=== PATIENT | female | born 1995 | race American Indian/Alaskan Native ===

== ENCOUNTER 2018-05-07 16:18 | Emergency (ER) | payer MEDICAID ==
[2018-05-07 16:31] VITALS: BP 112/71
[2018-05-07 16:50] LABS: HCG Qualitative,Urine Positive (Negative)
--- NOTE | 2018-05-07 16:52 | Emergency Department Report ---
ED Abdominal Pain HPI - General Chief Complaint: Abdominal Pain Stated Complaint: CRAMPING/7WKS PREG Time Seen by Provider: 05/07/18 16:51 Source: patient Mode of arrival: Ambulatory Limitations: No Limitations - History of Present Illness Initial Comments: Patient is a 23-year-old -[place] female who presents to the ER today with pelvic pressure. She is 7 weeks WITH LMP ON 1120. A1. PT IS ANXIOUS SHE IS HAVING A MISCARRIAGE. SHE HAS OB [facility]BGYN NO VAGINAL BLEEDING -: Gradual Associated Symptoms: denies other symptoms - Related Data Allergies Allergy/AdvReac Type Severity Reaction Status Date / Time No Known Allergies Allergy Unverified 05/07/18 16:21 ED Review of Systems ROS: Stated complaint: CRAMPING/7WKS PREG Other details as noted in HPI Comment: All other systems reviewed and negative Constitutional: denies: chills Eyes: denies: eye pain ENT: denies: throat pain Respiratory: denies: cough Cardiovascular: denies: dyspnea on exertion Endocrine: denies: excessive sweating Gastrointestinal: denies: nausea Genitourinary: as per HPI, other (PELVIC PRESSURE). denies: urgency, dysuria, frequency, hematuria, discharge, abnormal menses, dyspareunia Musculoskeletal: denies: back pain Skin: denies: rash Neurological: denies: headache Psychiatric: denies: anxiety Hematological/Lymphatic: denies: easy bleeding ED Past Medical Hx - Past Medical History Previous Medical History?: No - Surgical History Past Surgical History?: No - Social History Smoking Status: Never Smoker Substance Use Type: None ED Physical Exam - General Limitations: No Limitations General appearance: alert - Head Head exam: Present: atraumatic - Eye Eye exam: Present: normal appearance - ENT ENT exam: Present: normal exam, mucous membranes moist - Neck Neck exam: Present: normal inspection - Respiratory Respiratory exam: Present: normal lung sounds bilaterally - Cardiovascular Cardiovascular Exam: Present: regular rate - GI/Abdominal GI/Abdominal exam: Present: soft, normal bowel sounds - Rectal Rectal exam: Present: deferred - Extremities Exam Extremities exam: Present: normal inspection, full ROM - Back Exam Back exam: Present: normal inspection, full ROM - Neurological Exam Neurological exam: Present: alert, oriented X3 - Psychiatric Psychiatric exam: Present: normal affect, normal mood - Skin Skin exam: Present: warm, dry, intact ED Course Vital Signs 05/07/18 16:21 Temperature 97.7 F Pulse Rate 78 Respiratory 16 Rate Blood Pressure 112/71 O2 Sat by Pulse 99 Oximetry ED Medical Decision Making - Medical Decision Making GIVEN NO VAG BLEED NO ULTRASOUND WILL BE DONE UA IS CLEAR URINE PREG POS QUANT [id number] - Differential Diagnosis CONCERN FOR MISCARRIAGE; RO UTI; CONFIRM PREG Critical care attestation.: If time is entered above; I have spent that time in minutes in the direct care of this critically ill patient, excluding procedure time. ED Disposition Clinical Impression: Disposition: DC-01 TO HOME OR SELFCARE Is pt being admited?: No Does the pt Need Aspirin: No Condition: Stable Additional Instructions: NO UTI NOTED PELVIC REST DAILY MVI - HYDRATE WELL FOLLOW UP WITH OBGYN THIS WEEK-- [facility] LET HER KNOW YOU WERE HERE AND THEY CAN OBTAIN YOUR LABS FROM TODAY HORMONE [id number] Referrals: PRIMARY CARE, [Primary Care Provider] - 3-5 Days Time of Disposition: 17:11
[2018-05-07 16:54] LABS: Bilirubin,Urine NEG (Negative); Blood,Urine NEG (Negative); Color,Urine Yellow (Yellow); Mucus,Urine FEW /HPF; Protein,Urine <15 mg/dL mg/dL (Negative); RBC,Urine < 1.0 /HPF (0.0-6.0); Urobilinogen,Urine < 2.0 mg/dL (<2.0); WBC,Urine < 1.0 /HPF (0.0-6.0)
== END 2018-05-07 17:57 | disposition home or self-care (01) ==
LOC: ED 16:18
DX: O26.891 Other specified pregnancy related conditions, first trimester (principal); Z3A.01 Less than 8 weeks gestation of pregnancy
CPT/HCPCS: 36415; 81001; 81025; 84702; 99283

== ENCOUNTER 2018-12-03 03:43 | Inpatient (IN) | payer MEDICAID, OTHER ==
[2018-12-03] MEDS ORDERED: LACTATED RINGERS 500 ML IV ONE (03:53)
[2018-12-03] MEDS ORDERED: LACTATED RINGERS 1,000 ML IV ONE (04:58)
[2018-12-03] MEDS ORDERED: STADOL IV PRN (06:04)
[2018-12-03] MEDS ORDERED: XYLOCAINE 2% INFILTRATI ONE ×2 (06:04→18:59)
[2018-12-03] MEDS ORDERED: BRETHINE IVP PRN (06:04)
[2018-12-03] MEDS ORDERED: BRETHINE SUB-Q PRN (06:04)
[2018-12-03] MEDS ORDERED: AMPICILLIN/NS 2 GM/100 ML 2 GM/100 ML BAG IV ONE (06:04)
[2018-12-03] MEDS ORDERED: MINERAL OIL PO PRN (06:04)
[2018-12-03] MEDS ORDERED: SUBLIMAZE IV PRN (06:04)
--- NOTE | 2018-12-03 06:04 | History and Physical Report ---
History of Present Illness Date of examination: 12/03/18 Date of admission: 12/03/18 Chief complaint: Contractions History of present illness: 23yo G 2 P 1 0 0 1 @ 36 weeks 5 days here with c/o contractions every 3 mins. She reports +FMs but denies VB or LOF. She is a [facility] patient. records are unavailable. Per pt, her course has been unremarkable. She reports one visit with [facility] d/t abnormality seen on ultrasound but was cleared and advised to f/u as needed. GBS is unknown. Past History Past Medical History: no pertinent history Past Surgical History: no surgical history Family/Genetic History: diabetes (maternal grandmother and aunt), hypertension (mom) Social history: lives with family, full code. denies: smoking, alcohol abuse, prescription drug abuse, IV drug use - Obstetrical History Expected Date of Delivery: 12/26/18 Actual Gestation: 36 Week(s) 5 Day(s) : 2 Para: 1 Hx # Term Pregnancies: 1 Number of Pregnancies: 0 Spontaneous Abortions: 0 Induced : 0 Number of Living Children: 1 #1 Infant Gender: Female year: [birth year]) Birthweight: 2.863 kg (6 lbs 5 oz) Method of Delivery: Vaginal Gestational age at delivery: 37 Complications: none Medications and Allergies Allergies Allergy/AdvReac Type Severity Reaction Status Date / Time No Known Allergies Allergy Unverified 05/07/18 16:21 Review of Systems All systems: negative - Vital Signs Vital signs: Vital Signs Temp Resp 99.5 F 18 12/03/18 03:51 12/03/18 03:51 Temp Pulse Resp BP Pulse Ox 99.5 F 83 18 98/55 12/03/18 03:51 12/03/18 04:07 12/03/18 03:51 12/03/18 04:07 - Physical Exam Genitourinary (Female): Positive: normal external genitalia, normal perenium Vulva: both: normal Vagina: Positive: normal moisture Uterus: Positive: normal size - Obstetrical FHR: auscultation normal, category 1 FHR comments: baseline 140, moderate variability, 15x15 accels, no decels Cervical Dilatation: 5 Cervical Effacement Percentage: 80 station: 0 Uterine Contraction Pattern: Regular Results Result Diagrams: 12/03/18 06:12 All other labs normal. Assessment and Plan - Patient Problems (1) 36 weeks gestation of Current Visit: Yes Status: Acute (2) labor in third trimester Current Visit: Yes Status: Acute Qualifiers: Fetus number: single or unspecified fetus Plan to address problem: Admit to L&D with routine labor orders Expectant management Start Ampicillin for GBS prophylaxis Anticipate vaginal delivery
[2018-12-03 06:28] LABS: Hematocrit 36.4 % (30.3-42.9); Mean Corpuscular HGB Conc 33 % (30-34); Mean Corpuscular Volume 89 fl (79-97); Platelet Count 200 K/mm3 (140-440); Red Blood Count 4.12 M/mm3 (3.65-5.03); Red Cell Distribution Width 13.2 % (13.2-15.2)
[2018-12-03] MEDS ORDERED: PITOCin/NS 20 UNIT/1000ML DRIP 20 UNITS/1,000 ML BAG IV SCH (07:00)
[2018-12-03] MEDS: LACTATED RINGERS 1,000 ML IV SCH ×2 (08:00→14:43)
--- NOTE | 2018-12-03 10:25 | Progress Note ---
Assessment and Plan - Patient Problems (1) labor in third trimester Current Visit: Yes Status: Acute Qualifiers: Fetus number: single or unspecified fetus Plan to address problem: Continue routine labor orders Continue GBS prophylaxis as ordered Expectant management of labor until second dose of Abt has been received Anticipate Subjective - Subjective Date of service: 12/03/18 Principal diagnosis: 36.5 weeks gestation; Active labor Interval history: See admission H & P Patient reports: movement normal, contractions, no new complaints (Pt pleasant, offering no concerns/complaints), no loss of fluid, no vaginal bleeding Objective - Vital Signs Vital Signs: Vital Signs - 12hr 12/03/18 12/03/18 12/03/18 03:51 04:07 06:42 Temperature 99.5 F Pulse Rate 83 80 Respiratory 18 Rate Blood Pressure 98/55 Blood Pressure [Left] O2 Sat by Pulse 99 Oximetry 12/03/18 12/03/18 12/03/18 06:43 06:47 06:52 Temperature Pulse Rate 80 78 82 Respiratory Rate Blood Pressure 114/66 Blood Pressure [Left] O2 Sat by Pulse 99 98 Oximetry 12/03/18 12/03/18 12/03/18 06:57 07:02 07:13 Temperature Pulse Rate 86 89 84 Respiratory Rate Blood Pressure Blood Pressure [Left] O2 Sat by Pulse 100 100 100 Oximetry 12/03/18 12/03/18 12/03/18 07:15 07:17 07:22 Temperature Pulse Rate 83 81 82 Respiratory Rate Blood Pressure 115/56 Blood Pressure [Left] O2 Sat by Pulse 99 99 Oximetry 12/03/18 12/03/18 12/03/18 07:28 07:32 07:37 Temperature Pulse Rate 79 85 81 Respiratory Rate Blood Pressure 114/60 Blood Pressure [Left] O2 Sat by Pulse 98 99 100 Oximetry 12/03/18 12/03/18 12/03/18 07:42 07:43 07:47 Temperature Pulse Rate 78 76 84 Respiratory Rate Blood Pressure 117/66 Blood Pressure [Left] O2 Sat by Pulse 100 99 Oximetry 12/03/18 12/03/18 12/03/18 07:53 07:57 07:58 Temperature Pulse Rate 77 78 75 Respiratory Rate Blood Pressure 111/61 Blood Pressure [Left] O2 Sat by Pulse 100 100 Oximetry 12/03/18 12/03/18 12/03/18 08:03 08:07 08:08 Temperature Pulse Rate 79 91 H 89 Respiratory Rate Blood Pressure Blood Pressure [Left] O2 Sat by Pulse 99 98 91 Oximetry 12/03/18 12/03/18 12/03/18 08:13 08:17 08:22 Temperature 97.6 F Pulse Rate 82 89 86 Respiratory 14 Rate Blood Pressure Blood Pressure 111/61 [Left] O2 Sat by Pulse 99 98 100 Oximetry 12/03/18 12/03/18 12/03/18 08:27 08:32 08:37 Temperature Pulse Rate 78 93 H 81 Respiratory Rate Blood Pressure Blood Pressure [Left] O2 Sat by Pulse 99 98 99 Oximetry 12/03/18 12/03/18 12/03/18 08:42 08:47 08:52 Temperature Pulse Rate 84 82 78 Respiratory Rate Blood Pressure Blood Pressure [Left] O2 Sat by Pulse 99 100 99 Oximetry 12/03/18 12/03/18 12/03/18 08:57 09:02 09:07 Temperature Pulse Rate 75 80 94 H Respiratory Rate Blood Pressure Blood Pressure [Left] O2 Sat by Pulse 98 98 100 Oximetry - Exam Breasts: deferred Cardiovascular: Regular rate Lungs: Normal air movement Abdomen: Present: other (gravid) Uterus: Present: other (S=D) FHR: category 1 Uterine Contraction Monitor Mode: External Uterine Contraction Pattern: Irregular Uterine Tone Measurement Phase: Resting Uterine Contraction Intensity: Moderate Extremities: normal Deep Tendon Reflex Grade: Normal +2 - Labs Labs: Laboratory Results - last 24 hr 12/03/18 12/03/18 06:12 06:12 WBC 10.2 RBC 4.12 Hgb 12.0 Hct 36.4 MCV 89 MCH 29 MCHC 33 RDW 13.2 Plt Count 200 Blood Type B POSITIVE Antibody Screen Negative
[2018-12-03] MEDS: AMPICILLIN/NS 1 GM/50 ML 1 GM/50 ML BAG IV SCH ×2 (12:07→16:16)
--- NOTE | 2018-12-03 14:45 | Progress Note ---
Assessment and Plan - Patient Problems (1) labor in third trimester Current Visit: Yes Status: Acute Qualifiers: Fetus number: single or unspecified fetus Plan to address problem: Continue routine labor orders Continue GBS prophylaxis as ordered AROM - clear fluids, tolerated well Anticipate Subjective - Subjective Date of service: 12/03/18 (311) Principal diagnosis: 36.5 weeks gestation; Active labor Interval history: See admission H & P Patient reports: movement normal, contractions, no new complaints (Remains pleasant, rates pain as 2/10.), no loss of fluid, no vaginal bleeding Objective - Vital Signs Vital Signs: Vital Signs - 12hr 12/03/18 12/03/18 12/03/18 03:51 04:07 06:42 Temperature 99.5 F Pulse Rate 83 80 Respiratory 18 Rate Blood Pressure 98/55 Blood Pressure [Left] O2 Sat by Pulse 99 Oximetry 12/03/18 12/03/18 12/03/18 06:43 06:47 06:52 Temperature Pulse Rate 80 78 82 Respiratory Rate Blood Pressure 114/66 Blood Pressure [Left] O2 Sat by Pulse 99 98 Oximetry 12/03/18 12/03/18 12/03/18 06:57 07:02 07:13 Temperature Pulse Rate 86 89 84 Respiratory Rate Blood Pressure Blood Pressure [Left] O2 Sat by Pulse 100 100 100 Oximetry 12/03/18 12/03/18 12/03/18 07:15 07:17 07:22 Temperature Pulse Rate 83 81 82 Respiratory Rate Blood Pressure 115/56 Blood Pressure [Left] O2 Sat by Pulse 99 99 Oximetry 12/03/18 12/03/18 12/03/18 07:28 07:32 07:37 Temperature Pulse Rate 79 85 81 Respiratory Rate Blood Pressure 114/60 Blood Pressure [Left] O2 Sat by Pulse 98 99 100 Oximetry 12/03/18 12/03/18 12/03/18 07:42 07:43 07:47 Temperature Pulse Rate 78 76 84 Respiratory Rate Blood Pressure 117/66 Blood Pressure [Left] O2 Sat by Pulse 100 99 Oximetry 12/03/18 12/03/18 12/03/18 07:53 07:57 07:58 Temperature Pulse Rate 77 78 75 Respiratory Rate Blood Pressure 111/61 Blood Pressure [Left] O2 Sat by Pulse 100 100 Oximetry 12/03/18 12/03/18 12/03/18 08:03 08:07 08:08 Temperature Pulse Rate 79 91 H 89 Respiratory Rate Blood Pressure Blood Pressure [Left] O2 Sat by Pulse 99 98 91 Oximetry 12/03/18 12/03/18 12/03/18 08:13 08:17 08:22 Temperature 97.6 F Pulse Rate 82 89 86 Respiratory 14 Rate Blood Pressure Blood Pressure 111/61 [Left] O2 Sat by Pulse 99 98 100 Oximetry 12/03/18 12/03/18 12/03/18 08:27 08:32 08:37 Temperature Pulse Rate 78 93 H 81 Respiratory Rate Blood Pressure Blood Pressure [Left] O2 Sat by Pulse 99 98 99 Oximetry 12/03/18 12/03/18 12/03/18 08:42 08:47 08:52 Temperature Pulse Rate 84 82 78 Respiratory Rate Blood Pressure Blood Pressure [Left] O2 Sat by Pulse 99 100 99 Oximetry 12/03/18 12/03/18 12/03/18 08:57 09:02 09:07 Temperature Pulse Rate 75 80 94 H Respiratory Rate Blood Pressure Blood Pressure [Left] O2 Sat by Pulse 98 98 100 Oximetry 12/03/18 12/03/18 12/03/18 12:12 13:12 14:22 Temperature Pulse Rate 95 H 92 H 94 H Respiratory Rate Blood Pressure 118/64 114/71 118/68 Blood Pressure [Left] O2 Sat by Pulse Oximetry - Exam Breasts: deferred Cardiovascular: Regular rate Lungs: Normal air movement FHR: category 1 Uterine Contraction Monitor Mode: External Cervical Dilatation: 7 Cervical Effacement Percentage: 75 station: 0 Uterine Contraction Frequency (min): 2-3 Uterine Contraction Pattern: Irregular Uterine Tone Measurement Phase: Resting Uterine Contraction Intensity: Strong/Firm Extremities: normal Deep Tendon Reflex Grade: Normal +2 - Labs Labs: Laboratory Results - last 24 hr 12/03/18 12/03/18 12/03/18 06:12 06:12 06:12 WBC 10.2 RBC 4.12 Hgb 12.0 Hct 36.4 MCV 89 MCH 29 MCHC 33 RDW 13.2 Plt Count 200 RPR Nonreactive Blood Type B POSITIVE Antibody Screen Negative
[2018-12-03] MEDS ORDERED: PITOCin/NS 30 UNIT/500ML 30 UNITS/500 ML BAG IV SCH (17:00)
[2018-12-03] MEDS ORDERED: PHENERGAN PR PRN (20:48)
[2018-12-03] MEDS ORDERED: LANSINOH TP PRN (20:48)
[2018-12-03] MEDS ORDERED: BENADRYL PO PRN (20:48)
[2018-12-03] MEDS ORDERED: DULCOLAX PR PRN (20:48)
[2018-12-03] MEDS ORDERED: PHENERGAN PO PRN (20:48)
[2018-12-03] MEDS ORDERED: MILK OF MAGNESIA PO PRN (20:48)
[2018-12-03] MEDS ORDERED: PERCOCET 5/325 PO PRN (20:48)
[2018-12-03] MEDS ORDERED: ZOFRAN IV PRN (20:48)
--- NOTE | 2018-12-03 20:56 | Procedure Note ---
OB Delivery Note - Delivery Date of Delivery: 12/03/18 (1839) Surgeon: JONATHAN QUINONEZ (HELENA) Estimated blood loss: 300cc - Vaginal Delivery position: OP (LOP) Intrapartum events: none Delivery induction: none Delivery augmentation: rupture of membranes Delivery monitor: external FHT, external uterine Route of delivery: Delivery placenta: spontaneous (1845) Delivery cord: true knot, 3 umbilical vessels Episiotomy: none Delivery laceration: 1st degree Delivery repair: vicryl (2.0) Anesthesia: local Delivery comments: of viable male infant, alert and crying, placed immediately to maternal abdomen. Cord double clamped and cut by FOB after cessation of pulsation. Placenta delivered spontaneously, rodrigues, disposed per hospital policy. First degree left perineal laceration, repaired, hemostasis maintained. Mother and baby safe, stable and bonding well. - Infant A at 1 minute: 8 at 5 minutes: 9 Gender: Male (Weight: 3038 gms (6lbs 11 ozs), 18 inches)
[2018-12-03] MEDS ORDERED: SODIUM CHLORIDE FLUSH SYRINGE 10 ML IV NR (21:00)
[2018-12-03] MEDS ORDERED: DERMOPLAST TP PRN (22:46)
[2018-12-03] MEDS: TUCKS PAD TP PRN (22:51)
[2018-12-03] MEDS: IBUPROFEN PO SCH (22:51)
[2018-12-04] MEDS: IBUPROFEN PO SCH ×3 (04:40→17:28)
[2018-12-04 09:35] LABS: Hematocrit 33.2 % (30.3-42.9); Hemoglobin 11.1 gm/dl (10.1-14.3)
--- NOTE | 2018-12-04 10:19 | Progress Note ---
Assessment and Plan A: PP day #1 Stable P: Follow Routine Orders Depo Provera 150mg IM x 1 dose D/C Home today per patient request RTO in 6 weeks Subjective - Subjective Date of service: 12/04/18 Principal diagnosis: 36.5 weeks gestation; Active labor Patient reports: appetite normal, voiding normally, pain well controlled, flatus, ambulating normally [place]: doing well, bottle feeding Objective - Vital Signs Latest vital signs: Vital Signs Temp Pulse Resp BP BP Pulse Ox 12/04/18 07:53 98.2 F 89 18 115/62 12/04/18 04:00 98.7 F 72 18 105/72 12/03/18 21:28 97.6 F 94 H 18 114/69 99 12/03/18 19:19 93 H 100/51 12/03/18 16:13 90 118/58 12/03/18 15:13 90 114/62 12/03/18 14:22 94 H 118/68 12/03/18 13:12 92 H 114/71 12/03/18 12:12 95 H 118/64 Intake and Output 12/03/18 12/04/18 12/04/18 22:59 06:59 14:59 Intake Total 240 Output Total 500 Balance -500 240 Intake: Oral 240 Output: Urine 500 Void 500 Other: Total, Intake Amount 240 Total, Output Amount 500 # Voids Void 2 Estimated Blood Loss 300 - Exam Breasts: Present: normal Cardiovascular: Present: Regular rate Lungs: Present: Clear to auscultation, Normal air movement Abdomen: Present: normal appearance, soft, normal bowel sounds Uterus: Present: normal, firm, fundal height below umbilicus Extremities: Present: normal
--- NOTE | 2018-12-04 10:21 | Discharge Summary ---
Providers - Providers Date of Admission: 12/03/18 06:52 Date of discharge: 12/04/18 Attending physician: SCOTTIE OSBORN MD 12/03/18 20:50 Consult to Value Engineer [CONS] Routine Reason For Exam: assistance with , SNS Primary care physician: SCOTTIE OSBORN MD Hospitalization Reason for admission: active labor Delivery: Episiotomy: none Laceration: 1st degree Other procedures: none complications: none Discharge diagnosis: IUP at term delivered [place] baby: male Condition at discharge: Good Disposition: DC-01 TO HOME OR SELFCARE Plan - Provider Discharge Summary Activity: routine, no sex for 6 weeks, no heavy lifting 4 weeks, no strenuous exercise Diet: routine Instructions: routine Additional instructions: [] Smoking cessation referral if applicable(refer to patient education folder for contact #) [] Refer to [facility] Booklet Call your doctor immediately for: * Fever > 100.5 * Heavy vaginal bleeding ( >1 pad per hour) * Severe persistent headache * Shortness of breath * Reddened, hot, painful area to leg or breast * Drainage or odor from incision. * Keep incision clean and dry at all times and follow doctor's instructions regarding bathing/showering - Follow up plan Follow up: SCOTTIE OSBORN MD [Primary Care Provider] - 6 Weeks
[2018-12-04] MEDS: PRENATAL VITAMIN PO SCH (10:30)
[2018-12-04] MEDS ORDERED: DEPO-PROVERA (CONTRACEPTION) IM NR (10:30)
[2018-12-04] MEDS: TUCKS PAD TP PRN (21:29)
[2018-12-05] MEDS: IBUPROFEN PO SCH ×2 (00:14→09:10)
[2018-12-05] MEDS: PRENATAL VITAMIN PO SCH (09:10)
[2018-12-05 13:05] VITALS: BP 123/69
== END 2018-12-05 13:15 | disposition home or self-care (01) | DRG 775 ==
LOC: TRG 03:43 → LD 06:52 → OB 21:40
PROVIDERS: ADMIT Obstetrics & Gynecology; ATTEND Obstetrics & Gynecology
PROC: 10E0XZZ Delivery of Products of Conception, External Approach (ICD-10-PCS; principal; 2018-12-03)
PROC: 0HQ9XZZ Repair Perineum Skin, External Approach (ICD-10-PCS; 2018-12-03)
PROC: 10907ZC Drainage of Amniotic Fluid, Therapeutic from Products of Conception, Via Natural or Artificial Opening (ICD-10-PCS; 2018-12-03)
DX: O60.14X0 Preterm labor third trimester with preterm delivery third trimester, not applicable or unspecified (principal); O69.2XX0 Labor and delivery complicated by other cord entanglement, with compression, not applicable or unspecified; O70.0 First degree perineal laceration during delivery; Z3A.36 36 weeks gestation of pregnancy; Z37.0 Single live birth
CPT/HCPCS: 36415; 85014; 85018; 85027; 86592; 86850; 86900; 86901; G0378; J0290; J0595; J1050; J2590; J7120